=== PATIENT | female | born 1985 | race Native Hawaiian/Other Pacific Islander ===

== ENCOUNTER 2016-11-20 17:46 | Emergency (ER) | payer OTHER ==
[2016-11-20 18:35] LABS: RBC URINE 237 /hpf (0-3); URINE BACTERIA OCC (<OCC); URINE BILIRUBIN NEGATIVE (NEGATIVE); URINE BLOOD 3+ (NEGATIVE); URINE COLOR Straw (YELLOW); URINE GLUCOSE (UA) NORMAL (Normal); URINE KETONE NEGATIVE (NEGATIVE); URINE LEUKOCYTE ESTERASE NEG Leu/uL (Negative); URINE PROTEIN NEGATIVE (NEGATIVE); URINE UROBILINOGEN NORMAL mg/dL (0.2-1.0); WBC URINE 2 /hpf (0-5)
--- NOTE | 2016-11-20 18:43 | C.PDOC ---
History Of Present Illness 31-year-old female, no cardiac hx, presents to the emergency department s/p syncopal episode. Patient states she was at work prior to arrival when she had a witnessed syncopal episode. 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 States she was unconscious for a few seconds before returning to baseline. Patient is currently on menstrual cycle, notes that she usually feels weak when she is on her cycle, since she gave to her son last year. Patient has no Hx of anemia, but last HGB was found to be 8.7. Denies nausea/vomiting, fevers, chills, shortness of breath, chest pain, back pain, or any other associated symptoms. No signs or symptoms of direct head/neck trauma. Pt currently complaining of a mild headache. PMD Lenny Tran MD. Time Seen by Provider: 11/20/16 18:16 Chief Complaint (Nursing): Syncope History Per: Patient History/Exam Limitations: no limitations Onset/Duration Of Symptoms: Mins, Hrs Current Symptoms Are (Timing): Better Past Medical History Reviewed: Historical Data, Nursing Documentation, Vital Signs Vital Signs: Last Vital Signs Temp 97.8 F 11/20/16 17:53 Pulse 83 11/20/16 17:53 Resp 18 11/20/16 17:53 BP 135/94 H 11/20/16 17:53 Pulse Ox 100 11/20/16 18:56 Family History: States: Unknown Family Hx - Social History Hx Alcohol Use: No Hx Substance Use: No Review Of Systems Except As Marked, All Systems Reviewed And Found Negative. Constitutional: Negative for: Fever, Chills Cardiovascular: Negative for: Chest Pain, Palpitations, Edema Respiratory: Negative for: Shortness of Breath Gastrointestinal: Negative for: Nausea, Vomiting, Abdominal Pain Musculoskeletal: Negative for: Back Pain Skin: Negative for: Rash Neurological: Positive for: Headache. Negative for: Weakness, Numbness, Dizziness Physical Exam - Physical Exam Appears: Non-toxic, No Acute Distress Skin: Warm, Dry, No Rash Head: Atraumatic, Normacephalic Eye(s): bilateral: Normal Inspection Nose: Normal Oral Mucosa: Moist Lips: Normal Appearing Neck: Normal ROM Cardiovascular: Rhythm Regular Respiratory: Normal Breath Sounds, No Rales, No Rhonchi Extremity: Normal ROM Neurological/Psych: Oriented x3, Normal Speech, Normal Cognition ED Course And Treatment - Laboratory Results Result Diagrams: 11/20/16 19:05 11/20/16 19:05 ECG: Interpreted By Me ECG Rhythm: Sinus Rhythm ECG Interpretation: Normal Rate From EC O2 Sat by Pulse Oximetry: 100 Medical Decision Making Medical Decision Making: Hgb up from 8 by PCP is on iron an mvi Plan dc home Disposition Counseled Patient/Family Regarding: Diagnosis, Need For Followup - Disposition Referrals: Lee Tran MD [Staff Provider] - Disposition: HOME/ ROUTINE Disposition Time: 20:55 Condition: GOOD Instructions: Syncope (ED) - Clinical Impression Clinical Impression: Syncope - Scribe Statement The provider has reviewed the documentation as recorded by the Scriberna William All medical record entries made by the Scribe were at my direction and personally dictated by me. I have reviewed the chart and agree that the record accurately reflects my personal performance of the history, physical exam, medical decision making, and the department course for this patient. I have also personally directed, reviewed, and agree with the discharge instructions and disposition.
[2016-11-20 19:18] LABS: CHLORIDE 97 mmol/L (98-107)
[2016-11-20 19:19] LABS: POTASSIUM 3.4 mmol/L (3.6-5.2); SODIUM 139 mmol/L (132-148)
[2016-11-20 19:21] LABS: ALB/GLOB RATIO 1.2 (1.0-2.1); ALKALINE PHOSPHATASE 58 U/L (38-126); ALT/SGPT 35 U/L (9-52); AST/SGOT 27 U/L (14-36); BILIRUBIN,TOTAL 0.2 mg/dL (0.2-1.3); BLOOD UREA NITROGEN 8 mg/dL (7-17); CARBON DIOXIDE 23 mmol/L (22-30); GFR AFRICAN-AMERICAN > 60; GLUCOSE,RANDOM 97 mg/dL (65-105); TOTAL PROTEIN 7.7 g/dL (6.3-8.3)
[2016-11-20 19:22] LABS: CALCIUM 8.7 mg/dl (8.6-10.4)
[2016-11-20 19:30] LABS: BASO # 0.1 K/uL (0.0-0.2); BASO % 1.3 % (0.0-2.0); EOS # 0.4 K/uL (0.0-0.7); EOS % 4.6 % (0.0-4.0); HEMATOCRIT 33.1 % (34.0-47.0); LYMPH # 2.8 K/uL (1.0-4.3); LYMPH % 35.5 % (20.0-40.0); MEAN CORPUSCULAR HEMOGLOBIN 19.9 pg (27.0-31.0); MEAN CORPUSCULAR HGB CONC 30.9 g/dL (33.0-37.0); MEAN PLATELET VOLUME 10.4 fL (7.2-11.7); MONO # 0.2 K/uL (0.0-0.8); MONO % 3.2 % (0.0-10.0); NRBC % 0.2 % (0.0-2.0); RED CELL DISTRIBUTION WIDTH 23.7 % (11.5-14.5); WHITE BLOOD COUNT 7.8 K/uL (4.8-10.8)
[2016-11-20 19:31] LABS: MEAN CELL VOLUME 64.5 fL (81.0-99.0)
[2016-11-20 21:03] VITALS: BP 120/80; PULSE 80; RESP 16; TEMP 97.5; O2SAT 98
--- NOTE | 2016-11-22 23:40 | CARD ---
APPROVED REPORT EKG Measurement Heart [id number] CT [id number] <Conclusion> Normal sinus rhythm with sinus arrhythmia Normal ECG
== END 2016-11-20 21:01 | disposition home or self-care (01) ==
LOC: C.ER 17:46
DX: R55 Syncope and collapse (principal)